=== PATIENT | male | born 1975 | race Two or more races ===

== ENCOUNTER 2017-10-13 21:21 | Emergency (ER) | payer OTHER ==
[2017-10-13 21:35] VITALS: BP 128/87; PULSE 78; RESP 18; O2SAT 99
--- NOTE | 2017-10-13 21:47 | ED PDOC ---
Upper Extremity Pain/Injury Time Seen by Provider: 10/13/17 21:26 Chief Complaint (Nursing): Abnormal Skin Integrity Chief Complaint (Provider): left index finger injury History Per: Patient History/Exam Limitations: no limitations Onset/Duration Of Symptoms: Mins (x25) Current Symptoms Are (Timing): Still Present Additional Complaint(s): Levon Dotson is a 42 year old male, with no significant past medical history, who presents to the emergency department complaining of a left index finger injury onset x25 min [employer]. Patient states he accidentally cut his left index finger with a kitchen knife while attempting to cut a minto. Patient is right hand dominant. He denies any other injuries or other medical complaints. Tetanus is up to date. PMD: None provided. Past Medical History Reviewed: Historical Data, Nursing Documentation, Vital Signs Vital Signs: Last Vital Signs Temp Pulse 78 10/13/17 21:33 Resp 18 10/13/17 21:33 BP 128/87 10/13/17 21:33 Pulse Ox 99 10/13/17 21:33 - Medical History PMH: No Chronic Diseases - Surgical History Surgical History: No Surg Hx - Family History Family History: States: No Known Family Hx - Social History Current smoker - smoking cessation education provided: No Alcohol: Social Drugs: Denies - Allergies Allergies/Adverse Reactions: Allergies Allergy/AdvReac Type Severity Reaction Status Date / Time No Known Allergies Allergy Verified 10/13/17 21:33 Review of Systems ROS Statement: Except As Marked, All Systems Reviewed And Found Negative Musculoskeletal: Positive for: Hand Pain (left index finger injury) Physical Exam - Reviewed Nursing Documentation Reviewed: Yes Vital Signs Reviewed: Yes - Physical Exam Appears: Positive for: Non-toxic, No Acute Distress Head Exam: Positive for: ATRAUMATIC, NORMAL INSPECTION, NORMOCEPHALIC Skin: Positive for: Normal Color, Warm, Dry Eye Exam: Positive for: Normal appearance, EOMI, PERRL Neck: Positive for: Painless ROM Extremity: Positive for: Normal ROM (upper and lower extremities), Other (left index finger w/ 2cm crescent shaped laceration to radial aspect above DIP joint and stops at nailbed ). Negative for: Deformity, Swelling Neurologic/Psych: Positive for: Alert, Oriented. Negative for: Motor/Sensory Deficits - ECG O2 Sat by Pulse Oximetry: 99 (RA) Pulse Ox Interpretation: Normal Medical Decision Making Medical Decision Making: Time: 21:26 Initial Impression: left index digit laceration Initial Plan: --Reevaluation Scribe Attestation: Documented by Jean Treviño, acting as a scribe for Adriana Delaney PA-C Provider Scribe Attestation: All medical record entries made by the Scribe were at my direction and personally dictated by me. I have reviewed the chart and agree that the record accurately reflects my personal performance of the history, physical exam, medical decision making, and the department course for this patient. I have also personally directed, reviewed, and agree with the discharge instructions and disposition. Disposition - Clinical Impression Clinical Impression: Laceration - Patient ED Disposition Is Patient to be Admitted: No - Disposition Disposition: Routine/Home Disposition Time: 22:17 Condition: STABLE Additional Instructions: Suture removal in 7-10 days Instructions: Laceration Repair Forms: [employer] ([employer]) Laceration - Laceration Repair 3 Wound Length (In cm): 3 Description Of Wound: Linear Wound Cleansed With: Sterile Saline Anesthesia: Lidocaine 1% Wound Examination: Irrigated With Saline Wound Closure: Suture Suture Technique And Material Used: Interrupted (5), Nylon (5-0) Wound Complexity: Simple
== END 2017-10-13 22:20 | disposition home or self-care (01) ==
LOC: H.ER 21:21
DX: S61.211A Laceration without foreign body of left index finger without damage to nail, initial encounter (principal); W26.0XXA Contact with knife, initial encounter; Y92.000 Kitchen of unspecified non-institutional (private) residence as the place of occurrence of the external cause